=== PATIENT | female | born 1970 | race Caucasian/White ===

== ENCOUNTER 2021-10-30 14:12 | Inpatient (IN) ==
[2021-10-30 15:28] LABS: Basophils % 0.1 %; Eosinophils % 0.1 %
[2021-10-30 15:30] LABS: Hematocrit 16.6 % (35.3-44.9); Immature Granulocytes % 3.1 % (0-4); Immature Platelets 9.2 % (1.1-6.1); Lymphocytes # 1.6 K/mcL (0.6-4.6); Lymphocytes % 17.2 %; Mean Corpuscular HGB Conc 33.1 g/dL (31.6-35.5); Mean Corpuscular Hemoglobin 25.6 pg (28.0-33.3); Mean Corpuscular Volume 77.2 fL (83.0-100.0); Mean Platelet Volume 12.1 fL (9.4-12.4); Monocytes # 0.4 K/mcL (0.0-1.3); Monocytes % 4.4 %; Nucleated Red Blood Cells 2.6 /100 WBC (0); Red Blood Count 2.15 M/mcL (3.82-4.97); Segmented Neutrophils % 75.1 %
[2021-10-30 15:44] LABS: Alanine Aminotransferase 3 Units/L (7-52); Albumin 3.8 g/dL (3.5-5.7); Albumin/Globulin Ratio 1.5 (1.1-2.2); Alkaline Phosphatase 209 Units/L (34-104); Aspartate Amino Transferase 4 Units/L (13-39); BUN/Creatinine Ratio 54 (6-26); Bilirubin,Direct 0.6 mg/dL (0.0-0.2); Bilirubin,Indirect 1.5 mg/dL (0.0-1.0); Bilirubin,Total 2.1 mg/dL (0.3-1.0); Blood Urea Nitrogen 32 mg/dL (6-20); Calcium 9.4 mg/dL (8.6-10.3); Carbon Dioxide 19 mEq/L (23-29); Chloride 96 mEq/L (98-107); Globulin 2.5 g/dL (2.4-3.5); Glucose 390 mg/dL (70-105); Osmolality,Calculated 285 (280-300); Potassium 3.1 mEq/L (3.5-5.1); Sodium 126 mEq/L (136-145); Total Protein 6.3 g/dL (6.4-8.9); Troponin I < 0.03 ng/mL (< 0.04); eGFR For African Americans > 60 (> 60); eGFR For Non-African Americans > 60 (> 60)
[2021-10-30 15:52] LABS: Neutrophils # 6.8 K/mcL (1.6-8.9); Platelet Count 89 K/mcL (140-400)
[2021-10-30 15:56] LABS: Hemoglobin 5.5 g/dL (11.5-15.4)
[2021-10-30 15:57] LABS: Anisocytosis 1+ (Not Present); Ovalocytes 1+ (Not Present); Platelet Estimate Decreased (Normal)
[2021-10-30] MEDS ORDERED: 0.9 % Sodium Chloride 500 ML IVC ONE (15:59)
[2021-10-30 16:01] LABS: Influenza A PCR Negative (Negative); Influenza B PCR Negative (Negative); Resp. Syncytial Virus PCR Negative (Negative)
[2021-10-30 16:04] LABS: SARS-CoV-2 by PCR (In House) Negative (Negative)
[2021-10-30] MEDS ORDERED: Ringers Solution, Lactated 500 ML IVC ONE (16:18)
[2021-10-30] MEDS ORDERED: Isovue-370 500 ML BOTTLE IVP ONE ×2 (16:37→16:46)
[2021-10-30] MEDS ORDERED: Naloxone 0.4 MG/ML INJ IVP PRN (16:53)
[2021-10-30] MEDS ORDERED: Ondansetron 4 MG/2 ML VIAL IVP PRN (16:53)
[2021-10-30] MEDS: Pantoprazole 40 MG VIAL IVP SCH ×2 (16:59→23:01)
[2021-10-30 17:00] LABS: Magnesium 2.2 mg/dL (1.6-2.6)
[2021-10-30] MEDS ORDERED: *HR* Dextrose 50 % in Water (Syg) 50 ML SYRINGE IVP PRN (17:02)
[2021-10-30] MEDS ORDERED: Dextrose Gel 15 GM/37.5 ML TUBE PO PRN ×2 (17:02)
[2021-10-30] MEDS ORDERED: D5% in Water 1,000 ML IVC PRN (17:02)
[2021-10-30 17:51] LABS: Lactate Dehydrogenase 84 Units/L (140-271)
[2021-10-30 17:55] LABS: Basophils % 0.1 %
[2021-10-30 17:57] LABS: Hematocrit 15.2 % (35.3-44.9); Immature Granulocytes % 3.3 % (0-4); Immature Platelets 7.5 % (1.1-6.1); Lymphocytes # 1.5 K/mcL (0.6-4.6); Lymphocytes % 19.3 %; Mean Corpuscular HGB Conc 32.2 g/dL (31.6-35.5); Mean Corpuscular Hemoglobin 25.9 pg (28.0-33.3); Mean Corpuscular Volume 80.4 fL (83.0-100.0); Mean Platelet Volume 11.8 fL (9.4-12.4); Monocytes # 0.4 K/mcL (0.0-1.3); Monocytes % 4.7 %; Neutrophils # 5.7 K/mcL (1.6-8.9); Nucleated Red Blood Cells 2.8 /100 WBC (0); Red Blood Count 1.89 M/mcL (3.82-4.97); Segmented Neutrophils % 72.6 %; White Blood Count 7.8 K/mcL (4.3-11.1)
[2021-10-30 18:00] LABS: Platelet Count 80 K/mcL (140-400)
[2021-10-30 18:02] LABS: Hemoglobin 4.9 g/dL (11.5-15.4)
[2021-10-30 18:15] LABS: Anisocytosis 3+ (Not Present); Hypochromasia Present (Not Present); Platelet Estimate Decreased (Normal); Polychromasia 1+ (Not Present); Target Cells 1+ (Not Present)
[2021-10-30] MEDS ORDERED: 0.9 % Sodium Chloride 500 ML ONE (19:13)
[2021-10-30] MEDS: Pantoprazole 40 MG in 0.9 % Sodium Chloride Mini Bag 100 ML IVC SCH (23:01)
[2021-10-30] MEDS: Insulin LISPRO 300 UNITS/3 ML VIAL SUBQ SCH ×2 (23:11)
[2021-10-31] MEDS: Pantoprazole 40 MG in 0.9 % Sodium Chloride Mini Bag 100 ML IVC SCH ×5 (01:10→21:45)
[2021-10-31] MEDS ORDERED: 0.9 % Sodium Chloride 1,000 ML IVC SCH (01:45)
[2021-10-31 02:14] LABS: Basophils % 0.1 %; Lymphocytes % 20.5 %; Mean Corpuscular Volume 78.5 fL (83.0-100.0); Nucleated Red Blood Cells 1.6 /100 WBC (0)
[2021-10-31 02:16] LABS: Eosinophils % 0.2 %; Immature Granulocytes % 4.3 % (0-4); Immature Platelets 8.2 % (1.1-6.1); Lymphocytes # 1.9 K/mcL (0.6-4.6); Mean Corpuscular HGB Conc 35.3 g/dL (31.6-35.5); Mean Corpuscular Hemoglobin 27.7 pg (28.0-33.3); Mean Platelet Volume 10.8 fL (9.4-12.4); Monocytes # 0.4 K/mcL (0.0-1.3); Monocytes % 4.9 %; Neutrophils # 6.3 K/mcL (1.6-8.9); Red Blood Count 2.56 M/mcL (3.82-4.97); Red Cell Distribution Width 15.3 % (11.5-14.5)
[2021-10-31 02:17] LABS: Platelet Count 75 K/mcL (140-400)
[2021-10-31] MEDS: Insulin LISPRO 300 UNITS/3 ML VIAL SUBQ SCH ×3 (05:52→18:54)
[2021-10-31 06:27] LABS: Bilirubin,Urine Small (Negative); Blood,Urine Trace (Negative); Clarity,Urine Turbid (Clear); Color,Urine Orange (Yellow); Glucose,Urine (UA) 200 mg/dL (Normal); Ketones,Urine Negative (Negative); Leukocyte Esterase,Urine Small (Negative); Mucus,Urine Few per lpf (None-Few); Nitrite,Urine Negative (Negative); Protein,Urine 30 mg/dL (Neg-Trace); RBC,Urine 0-3 per hpf (0-3); Specific Gravity,Urine 1.025 (1.010-1.025); Squamous Epithelial Cell,Urine Few per hpf (None-Few); WBC,Urine 15-30 per hpf (0-3)
[2021-10-31 06:35] LABS: Mean Platelet Volume 11.1 fL (9.4-12.4)
[2021-10-31 06:37] LABS: Basophils % 0.2 %; Eosinophils % 0.2 %; Hemoglobin 6.6 g/dL (11.5-15.4); Immature Granulocytes % 4.1 % (0-4); Immature Platelets 6.1 % (1.1-6.1); Lymphocytes % 24.8 %; Mean Corpuscular HGB Conc 36.7 g/dL (31.6-35.5); Mean Corpuscular Hemoglobin 28.6 pg (28.0-33.3); Mean Corpuscular Volume 77.9 fL (83.0-100.0); Monocytes # 0.4 K/mcL (0.0-1.3); Monocytes % 4.7 %; Neutrophils # 5.4 K/mcL (1.6-8.9); Nucleated Red Blood Cells 1.5 /100 WBC (0); Red Blood Count 2.31 M/mcL (3.82-4.97); Red Cell Distribution Width 14.6 % (11.5-14.5); White Blood Count 8.1 K/mcL (4.3-11.1)
[2021-10-31 06:43] LABS: Platelet Count 73 K/mcL (140-400)
[2021-10-31 07:04] LABS: Alanine Aminotransferase 3 Units/L (7-52); Albumin 3.1 g/dL (3.5-5.7); Albumin/Globulin Ratio 1.6 (1.1-2.2); Alkaline Phosphatase 177 Units/L (34-104); Aspartate Amino Transferase 4 Units/L (13-39); BUN/Creatinine Ratio 59 (6-26); Bilirubin,Direct 0.6 mg/dL (0.0-0.2); Bilirubin,Indirect 1.8 mg/dL (0.0-1.0); Bilirubin,Total 2.4 mg/dL (0.3-1.0); Blood Urea Nitrogen 29 mg/dL (6-20); Calcium 8.5 mg/dL (8.6-10.3); Carbon Dioxide 21 mEq/L (23-29); Chloride 102 mEq/L (98-107); Glucose 179 mg/dL (70-105); Magnesium 1.9 mg/dL (1.6-2.6); Osmolality,Calculated 282 (280-300); Potassium 3.2 mEq/L (3.5-5.1); Sodium 131 mEq/L (136-145); Total Protein 5.1 g/dL (6.4-8.9); eGFR For African Americans > 60 (> 60); eGFR For Non-African Americans > 60 (> 60)
[2021-10-31] MEDS ORDERED: 0.9 % Sodium Chloride 250 ML IVC SCH (07:45)
[2021-10-31 13:04] LABS: INR 1.2; Prothrombin Time 13.8 Seconds (9.4-12.1)
[2021-10-31] MEDS ORDERED: Lidocaine -MPF 2% 5 ML VIAL ONE (14:03)
[2021-10-31 15:23] LABS: Hematocrit 23.7 % (35.3-44.9)
[2021-10-31 15:27] LABS: Hemoglobin 8.5 g/dL (11.5-15.4)
[2021-11-01] MEDS: Pantoprazole 40 MG in 0.9 % Sodium Chloride Mini Bag 100 ML IVC SCH ×5 (02:20→22:14)
[2021-11-01] MEDS: Insulin LISPRO 300 UNITS/3 ML VIAL SUBQ SCH ×4 (02:20→19:47)
[2021-11-01 04:59] LABS: Basophils % 0.3 %; Eosinophils % 0.3 %; Hematocrit 23.9 % (35.3-44.9); Hemoglobin 8.4 g/dL (11.5-15.4); Lymphocytes # 0.9 K/mcL (0.6-4.6); Mean Corpuscular HGB Conc 35.1 g/dL (31.6-35.5); Mean Corpuscular Hemoglobin 28.5 pg (28.0-33.3); Mean Platelet Volume 10.6 fL (9.4-12.4); Monocytes # 0.4 K/mcL (0.0-1.3); Monocytes % 5.9 %; Nucleated Red Blood Cells 0.6 /100 WBC (0); Red Blood Count 2.95 M/mcL (3.82-4.97); Red Cell Distribution Width 14.9 % (11.5-14.5); Segmented Neutrophils % 77.5 %; White Blood Count 6.4 K/mcL (4.3-11.1)
[2021-11-01 05:00] LABS: Platelet Count 54 K/mcL (140-400)
[2021-11-01 05:17] LABS: Albumin 2.7 g/dL (3.5-5.7); Albumin/Globulin Ratio 1.4 (1.1-2.2); BUN/Creatinine Ratio 48 (6-26); Bilirubin,Direct 0.7 mg/dL (0.0-0.2); Bilirubin,Indirect 1.6 mg/dL (0.0-1.0); Bilirubin,Total 2.3 mg/dL (0.3-1.0); Blood Urea Nitrogen 20 mg/dL (6-20); Calcium 7.7 mg/dL (8.6-10.3); Carbon Dioxide 18 mEq/L (23-29); Chloride 107 mEq/L (98-107); Glucose 216 mg/dL (70-105); Magnesium 1.8 mg/dL (1.6-2.6); Osmolality,Calculated 285 (280-300); Potassium 3.6 mEq/L (3.5-5.1); Sodium 133 mEq/L (136-145); Total Protein 4.7 g/dL (6.4-8.9); eGFR For African Americans > 60 (> 60); eGFR For Non-African Americans > 60 (> 60)
[2021-11-01] MEDS ORDERED: Cyanocobalamin (B-12) 1,000 MCG/ML VIAL SQ ONE (07:14)
[2021-11-01] MEDS: Cholecalciferol (D-3) 1,000 UNIT (25MCG) TABLET PO SCH (08:02)
[2021-11-01] MEDS: dexAMETHasone 4 MG TABLET PO SCH (20:30)
[2021-11-01] MEDS ORDERED: Mirtazapine 15 MG TABLET PO SCH (21:00)
[2021-11-02] MEDS: Insulin LISPRO 300 UNITS/3 ML VIAL SUBQ SCH ×4 (00:02→18:17)
[2021-11-02] MEDS: Pantoprazole 40 MG in 0.9 % Sodium Chloride Mini Bag 100 ML IVC SCH ×4 (03:18→20:25)
[2021-11-02 06:32] LABS: Hemoglobin 7.8 g/dL (11.5-15.4); Nucleated Red Blood Cells 0.4 /100 WBC (0)
[2021-11-02 06:34] LABS: Basophils % 0.2 %; Hematocrit 21.9 % (35.3-44.9); Immature Granulocytes % 0.8 % (0-4); Immature Platelets 3.8 % (1.1-6.1); Lymphocytes # 0.5 K/mcL (0.6-4.6); Lymphocytes % 10.5 %; Mean Corpuscular HGB Conc 35.6 g/dL (31.6-35.5); Mean Corpuscular Volume 81.4 fL (83.0-100.0); Mean Platelet Volume 11.3 fL (9.4-12.4); Monocytes # 0.1 K/mcL (0.0-1.3); Monocytes % 2.4 %; Red Blood Count 2.69 M/mcL (3.82-4.97); Red Cell Distribution Width 15.4 % (11.5-14.5); Segmented Neutrophils % 86.1 %; White Blood Count 4.9 K/mcL (4.3-11.1)
[2021-11-02 06:36] LABS: Neutrophils # 4.2 K/mcL (1.6-8.9); Platelet Count 49 K/mcL (140-400)
[2021-11-02 06:39] LABS: Albumin 2.7 g/dL (3.5-5.7); Albumin/Globulin Ratio 1.4 (1.1-2.2); BUN/Creatinine Ratio 38 (6-26); Bilirubin,Direct 0.8 mg/dL (0.0-0.2); Bilirubin,Indirect 1.2 mg/dL (0.0-1.0); Blood Urea Nitrogen 15 mg/dL (6-20); Calcium 7.8 mg/dL (8.6-10.3); Carbon Dioxide 18 mEq/L (23-29); Chloride 108 mEq/L (98-107); Globulin 1.9 g/dL (2.4-3.5); Glucose 207 mg/dL (70-105); Magnesium 1.9 mg/dL (1.6-2.6); Osmolality,Calculated 285 (280-300); Phosphorous 2.2 mg/dL (2.7-4.5); Potassium 3.5 mEq/L (3.5-5.1); Sodium 134 mEq/L (136-145); Total Protein 4.6 g/dL (6.4-8.9); eGFR For African Americans > 60 (> 60); eGFR For Non-African Americans > 60 (> 60)
[2021-11-02] MEDS: dexAMETHasone 4 MG TABLET PO SCH (08:30)
[2021-11-02] MEDS: Cholecalciferol (D-3) 1,000 UNIT (25MCG) TABLET PO SCH (08:30)
[2021-11-02] MEDS ORDERED: 0.9 % Sodium Chloride 250 ML IVC SCH (14:15)
[2021-11-02] MEDS ORDERED: 0.9 % Sodium Chloride 250 ML ONE (15:53)
[2021-11-03] MEDS: Insulin LISPRO 300 UNITS/3 ML VIAL SUBQ SCH ×4 (01:17→20:32)
[2021-11-03] MEDS: Pantoprazole 40 MG in 0.9 % Sodium Chloride Mini Bag 100 ML IVC SCH ×5 (01:24→21:45)
[2021-11-03 11:17] LABS: Immature Granulocytes % 0.6 % (0-4)
[2021-11-03 11:19] LABS: Immature Platelets 4.8 % (1.1-6.1); Lymphocytes # 1.3 K/mcL (0.6-4.6); Lymphocytes % 27.1 %; Mean Corpuscular HGB Conc 34.8 g/dL (31.6-35.5); Mean Corpuscular Hemoglobin 28.2 pg (28.0-33.3); Mean Platelet Volume 10.4 fL (9.4-12.4); Monocytes # 0.2 K/mcL (0.0-1.3); Neutrophils # 3.2 K/mcL (1.6-8.9); Nucleated Red Blood Cells 0.4 /100 WBC (0); Red Blood Count 2.84 M/mcL (3.82-4.97); Red Cell Distribution Width 15.5 % (11.5-14.5); Segmented Neutrophils % 67.3 %; White Blood Count 4.8 K/mcL (4.3-11.1)
[2021-11-03 11:20] LABS: Platelet Count 65 K/mcL (140-400)
[2021-11-03 11:22] LABS: Albumin 2.9 g/dL (3.5-5.7); Albumin/Globulin Ratio 1.5 (1.1-2.2); BUN/Creatinine Ratio 44 (6-26); Bilirubin,Direct 0.4 mg/dL (0.0-0.2); Bilirubin,Indirect 0.9 mg/dL (0.0-1.0); Bilirubin,Total 1.3 mg/dL (0.3-1.0); Blood Urea Nitrogen 17 mg/dL (6-20); Carbon Dioxide 18 mEq/L (23-29); Chloride 108 mEq/L (98-107); Globulin 1.9 g/dL (2.4-3.5); Glucose 169 mg/dL (70-105); Magnesium 1.9 mg/dL (1.6-2.6); Osmolality,Calculated 287 (280-300); Potassium 3.3 mEq/L (3.5-5.1); Sodium 136 mEq/L (136-145); Total Protein 4.8 g/dL (6.4-8.9); eGFR For African Americans > 60 (> 60); eGFR For Non-African Americans > 60 (> 60)
[2021-11-03] MEDS ORDERED: Lidocaine -MPF 1% 5 ML AMPUL INFILT ONE (11:28)
[2021-11-04] MEDS: Insulin LISPRO 300 UNITS/3 ML VIAL SUBQ SCH ×4 (01:38→18:24)
[2021-11-04] MEDS: Pantoprazole 40 MG in 0.9 % Sodium Chloride Mini Bag 100 ML IVC SCH ×5 (02:27→20:43)
[2021-11-04 04:39] LABS: Hemoglobin 7.8 g/dL (11.5-15.4); Immature Granulocytes % 0.4 % (0-4); Monocytes % 3.8 %; Platelet Count 62 K/mcL (140-400)
[2021-11-04 04:41] LABS: Hematocrit 22.7 % (35.3-44.9); Immature Platelets 4.4 % (1.1-6.1); Lymphocytes # 0.8 K/mcL (0.6-4.6); Lymphocytes % 18.5 %; Mean Corpuscular HGB Conc 34.4 g/dL (31.6-35.5); Mean Corpuscular Hemoglobin 28.2 pg (28.0-33.3); Mean Corpuscular Volume 81.9 fL (83.0-100.0); Mean Platelet Volume 10.4 fL (9.4-12.4); Monocytes # 0.2 K/mcL (0.0-1.3); Neutrophils # 3.5 K/mcL (1.6-8.9); Nucleated Red Blood Cells 0.4 /100 WBC (0); Red Blood Count 2.77 M/mcL (3.82-4.97); Red Cell Distribution Width 15.6 % (11.5-14.5); Segmented Neutrophils % 77.3 %; White Blood Count 4.5 K/mcL (4.3-11.1)
[2021-11-04 04:55] LABS: Alanine Aminotransferase 5 Units/L (7-52); Albumin 2.8 g/dL (3.5-5.7); Albumin/Globulin Ratio 1.5 (1.1-2.2); Alkaline Phosphatase 164 Units/L (34-104); Aspartate Amino Transferase 5 Units/L (13-39); BUN/Creatinine Ratio 51 (6-26); Bilirubin,Direct 0.3 mg/dL (0.0-0.2); Bilirubin,Indirect 0.8 mg/dL (0.0-1.0); Bilirubin,Total 1.1 mg/dL (0.3-1.0); Blood Urea Nitrogen 19 mg/dL (6-20); Carbon Dioxide 16 mEq/L (23-29); Chloride 108 mEq/L (98-107); Globulin 1.9 g/dL (2.4-3.5); Glucose 178 mg/dL (70-105); Magnesium 1.9 mg/dL (1.6-2.6); Osmolality,Calculated 287 (280-300); Potassium 3.7 mEq/L (3.5-5.1); Sodium 135 mEq/L (136-145); Total Protein 4.7 g/dL (6.4-8.9); eGFR For African Americans > 60 (> 60); eGFR For Non-African Americans > 60 (> 60)
[2021-11-04] MEDS: Chlorhexidine Rinse 15 ML MOUTHWASH MM SCH (20:44)
[2021-11-05] MEDS: Insulin LISPRO 300 UNITS/3 ML VIAL SUBQ SCH ×4 (00:52→18:57)
[2021-11-05] MEDS: Pantoprazole 40 MG in 0.9 % Sodium Chloride Mini Bag 100 ML IVC SCH ×5 (02:00→20:25)
[2021-11-05 02:17] LABS: Hemoglobin 7.4 g/dL (11.5-15.4); Immature Granulocytes % 0.7 % (0-4); Red Cell Distribution Width 15.7 % (11.5-14.5)
[2021-11-05 02:19] LABS: Hematocrit 21.5 % (35.3-44.9); Lymphocytes # 0.7 K/mcL (0.6-4.6); Lymphocytes % 23.8 %; Mean Corpuscular HGB Conc 34.4 g/dL (31.6-35.5); Mean Corpuscular Volume 81.4 fL (83.0-100.0); Mean Platelet Volume 9.7 fL (9.4-12.4); Monocytes # 0.1 K/mcL (0.0-1.3); Monocytes % 2.3 %; Neutrophils # 2.2 K/mcL (1.6-8.9); Red Blood Count 2.64 M/mcL (3.82-4.97); Segmented Neutrophils % 73.2 %
[2021-11-05 02:21] LABS: Platelet Count 54 K/mcL (140-400)
[2021-11-05 02:37] LABS: BUN/Creatinine Ratio 56 (6-26); Blood Urea Nitrogen 18 mg/dL (6-20); Calcium 7.6 mg/dL (8.6-10.3); Carbon Dioxide 17 mEq/L (23-29); Chloride 108 mEq/L (98-107); Glucose 170 mg/dL (70-105); Magnesium 1.9 mg/dL (1.6-2.6); Osmolality,Calculated 288 (280-300); Phosphorous 2.8 mg/dL (2.7-4.5); Potassium 3.3 mEq/L (3.5-5.1); Sodium 136 mEq/L (136-145); eGFR For African Americans > 60 (> 60); eGFR For Non-African Americans > 60 (> 60)
[2021-11-05] MEDS: Chlorhexidine Rinse 15 ML MOUTHWASH MM SCH ×2 (07:26→19:42)
[2021-11-06] MEDS: Insulin LISPRO 300 UNITS/3 ML VIAL SUBQ SCH ×4 (00:52→18:22)
[2021-11-06] MEDS: Pantoprazole 40 MG in 0.9 % Sodium Chloride Mini Bag 100 ML IVC SCH (01:52)
[2021-11-06 06:22] LABS: Mean Corpuscular Volume 82.5 fL (83.0-100.0); Red Cell Distribution Width 15.7 % (11.5-14.5)
[2021-11-06 06:25] LABS: Basophils % 0.2 %; Eosinophils % 0.2 %; Hematocrit 23.6 % (35.3-44.9); Immature Granulocytes % 0.4 % (0-4); Immature Platelets 4.8 % (1.1-6.1); Lymphocytes # 1.1 K/mcL (0.6-4.6); Lymphocytes % 23.8 %; Mean Corpuscular HGB Conc 33.9 g/dL (31.6-35.5); Mean Platelet Volume 11.3 fL (9.4-12.4); Monocytes # 0.1 K/mcL (0.0-1.3); Monocytes % 3.1 %; Red Blood Count 2.86 M/mcL (3.82-4.97); Segmented Neutrophils % 72.3 %; White Blood Count 4.5 K/mcL (4.3-11.1)
[2021-11-06 06:33] LABS: Neutrophils # 3.3 K/mcL (1.6-8.9); Platelet Count 59 K/mcL (140-400)
[2021-11-06 07:47] LABS: Alanine Aminotransferase 6 Units/L (7-52); Albumin/Globulin Ratio 1.8 (1.1-2.2); Alkaline Phosphatase 185 Units/L (34-104); Aspartate Amino Transferase 7 Units/L (13-39); BUN/Creatinine Ratio 40 (6-26); Bilirubin,Direct 0.4 mg/dL (0.0-0.2); Bilirubin,Total 1.4 mg/dL (0.3-1.0); Blood Urea Nitrogen 17 mg/dL (6-20); Calcium 8.1 mg/dL (8.6-10.3); Carbon Dioxide 14 mEq/L (23-29); Chloride 105 mEq/L (98-107); Globulin 1.7 g/dL (2.4-3.5); Glucose 229 mg/dL (70-105); Magnesium 2.4 mg/dL (1.6-2.6); Osmolality,Calculated 281 (280-300); Phosphorous 2.5 mg/dL (2.7-4.5); Sodium 131 mEq/L (136-145); Total Protein 4.7 g/dL (6.4-8.9); eGFR For African Americans > 60 (> 60); eGFR For Non-African Americans > 60 (> 60)
[2021-11-06] MEDS: Chlorhexidine Rinse 15 ML MOUTHWASH MM SCH ×3 (09:03→21:29)
[2021-11-06] MEDS: Pantoprazole 40 MG VIAL IVP SCH (09:04)
[2021-11-06] MEDS: Stomatitis Mixture 5 ML UDC PO SCH ×5 (09:04→21:32)
[2021-11-07] MEDS: Insulin LISPRO 300 UNITS/3 ML VIAL SUBQ SCH ×4 (01:12→17:11)
[2021-11-07 03:23] LABS: Eosinophils % 0.2 %; Hemoglobin 7.3 g/dL (11.5-15.4)
[2021-11-07 03:24] LABS: Hematocrit 21.5 % (35.3-44.9); Immature Granulocytes % 0.2 % (0-4); Lymphocytes # 1.6 K/mcL (0.6-4.6); Lymphocytes % 33.8 %; Mean Corpuscular Hemoglobin 28.1 pg (28.0-33.3); Mean Corpuscular Volume 82.7 fL (83.0-100.0); Mean Platelet Volume 10.5 fL (9.4-12.4); Monocytes # 0.1 K/mcL (0.0-1.3); Monocytes % 2.1 %; Red Cell Distribution Width 15.9 % (11.5-14.5); Segmented Neutrophils % 63.7 %; White Blood Count 4.7 K/mcL (4.3-11.1)
[2021-11-07 03:28] LABS: Platelet Count 52 K/mcL (140-400)
[2021-11-07 03:30] LABS: Alanine Aminotransferase 7 Units/L (7-52); Albumin 2.9 g/dL (3.5-5.7); Albumin/Globulin Ratio 1.5 (1.1-2.2); Alkaline Phosphatase 172 Units/L (34-104); Aspartate Amino Transferase 6 Units/L (13-39); BUN/Creatinine Ratio 43 (6-26); Bilirubin,Direct 0.5 mg/dL (0.0-0.2); Bilirubin,Indirect 1.1 mg/dL (0.0-1.0); Bilirubin,Total 1.6 mg/dL (0.3-1.0); Blood Urea Nitrogen 22 mg/dL (6-20); Calcium 7.8 mg/dL (8.6-10.3); Carbon Dioxide 17 mEq/L (23-29); Chloride 105 mEq/L (98-107); Globulin 1.9 g/dL (2.4-3.5); Glucose 199 mg/dL (70-105); Magnesium 2.2 mg/dL (1.6-2.6); Osmolality,Calculated 285 (280-300); Potassium 3.6 mEq/L (3.5-5.1); Sodium 133 mEq/L (136-145); Total Protein 4.8 g/dL (6.4-8.9); eGFR For African Americans > 60 (> 60); eGFR For Non-African Americans > 60 (> 60)
[2021-11-07] MEDS: Chlorhexidine Rinse 15 ML MOUTHWASH MM SCH ×2 (09:28→23:00)
[2021-11-07] MEDS: Pantoprazole 40 MG VIAL IVP SCH (09:29)
[2021-11-07] MEDS: Stomatitis Mixture 5 ML UDC PO SCH ×4 (10:05→23:00)
[2021-11-07] MEDS ORDERED: Gadolinium Contrast Agent (WT Based) IV PRN (14:11)
[2021-11-07 14:17] LABS: Prothrombin Time 11.5 Seconds (9.4-12.1)
[2021-11-07] MEDS: Magic Mouthwash 10 ML UD Cup PO SCH (17:04)
[2021-11-07] MEDS: 0.9 % Sodium Chloride 1,000 ML IVC SCH (17:11)
[2021-11-07] MEDS: Desitin (Zinc Oxide) 56 GM TUBE TP SCH (23:00)
[2021-11-08] MEDS: 0.9 % Sodium Chloride 1,000 ML IVC SCH (05:50)
[2021-11-08] MEDS: Insulin LISPRO 300 UNITS/3 ML VIAL SUBQ SCH ×4 (05:51→16:44)
[2021-11-08 06:24] LABS: Eosinophils % 0.2 %; Hemoglobin 7.1 g/dL (11.5-15.4); Immature Granulocytes % 0.2 % (0-4)
[2021-11-08 06:26] LABS: Hematocrit 20.8 % (35.3-44.9); Immature Platelets 5.3 % (1.1-6.1); Lymphocytes # 1.1 K/mcL (0.6-4.6); Lymphocytes % 24.7 %; Mean Corpuscular HGB Conc 34.1 g/dL (31.6-35.5); Mean Corpuscular Volume 81.9 fL (83.0-100.0); Monocytes # 0.1 K/mcL (0.0-1.3); Monocytes % 2.2 %; Neutrophils # 3.3 K/mcL (1.6-8.9); Red Blood Count 2.54 M/mcL (3.82-4.97); Red Cell Distribution Width 15.4 % (11.5-14.5); Segmented Neutrophils % 72.7 %; White Blood Count 4.5 K/mcL (4.3-11.1)
[2021-11-08 06:27] LABS: Platelet Count 38 K/mcL (140-400)
[2021-11-08 06:50] LABS: Alanine Aminotransferase 6 Units/L (7-52); Albumin 3.1 g/dL (3.5-5.7); Albumin/Globulin Ratio 1.7 (1.1-2.2); Alkaline Phosphatase 190 Units/L (34-104); Aspartate Amino Transferase 5 Units/L (13-39); BUN/Creatinine Ratio 50 (6-26); Bilirubin,Total 1.9 mg/dL (0.3-1.0); Blood Urea Nitrogen 19 mg/dL (6-20); Calcium 8.4 mg/dL (8.6-10.3); Carbon Dioxide 16 mEq/L (23-29); Chloride 105 mEq/L (98-107); Globulin 1.8 g/dL (2.4-3.5); Glucose 182 mg/dL (70-105); Magnesium 2.2 mg/dL (1.6-2.6); Osmolality,Calculated 279 (280-300); Potassium 3.4 mEq/L (3.5-5.1); Sodium 131 mEq/L (136-145); Total Protein 4.9 g/dL (6.4-8.9); eGFR For African Americans > 60 (> 60); eGFR For Non-African Americans > 60 (> 60)
[2021-11-08] MEDS: Stomatitis Mixture 5 ML UDC PO SCH ×4 (10:20→23:04)
[2021-11-08] MEDS: Magic Mouthwash 10 ML UD Cup PO SCH ×3 (10:20→18:08)
[2021-11-08] MEDS: Chlorhexidine Rinse 15 ML MOUTHWASH MM SCH ×2 (10:21→22:34)
[2021-11-08] MEDS: Pantoprazole 40 MG VIAL IVP SCH (10:21)
[2021-11-08] MEDS ORDERED: Saliva Stimulant 44.3ml BOTTLE PO PRN (13:30)
[2021-11-08] MEDS: Desitin (Zinc Oxide) 56 GM TUBE TP SCH (15:25)
[2021-11-08 16:13] VITALS: TEMP 98.2
[2021-11-08 22:22] VITALS: O2SAT 100
[2021-11-08] MEDS: Morphine Sulfate Oral CONC 10 MG/0.5 ML ORAL.SYG SL PRN (22:34)
[2021-11-08] MEDS: Artificial Tears SOLN 15 ML BOTTLE BOTH EYES SCH (22:34)
[2021-11-08] MEDS: Nystatin POWDER 30 GM BOTTLE TP SCH (23:04)
[2021-11-09] MEDS: Desitin (Zinc Oxide) 56 GM TUBE TP SCH ×3 (01:05→22:07)
[2021-11-09] MEDS: Insulin LISPRO 300 UNITS/3 ML VIAL SUBQ SCH ×4 (03:09→16:36)
[2021-11-09] MEDS: Stomatitis Mixture 5 ML UDC PO SCH ×4 (08:00→22:35)
[2021-11-09] MEDS: Magic Mouthwash 10 ML UD Cup PO SCH ×4 (08:00→16:36)
[2021-11-09] MEDS: Chlorhexidine Rinse 15 ML MOUTHWASH MM SCH ×3 (08:00→22:07)
[2021-11-09] MEDS: *HR* LORazepam Oral Conc 2 MG/ML PO PRN (08:03)
[2021-11-09] MEDS: Pantoprazole 40 MG VIAL IVP SCH (08:03)
[2021-11-09] MEDS: Morphine Sulfate Oral CONC 10 MG/0.5 ML ORAL.SYG SL PRN ×3 (08:04→22:09)
[2021-11-09] MEDS: Nystatin POWDER 30 GM BOTTLE TP SCH ×3 (08:05→22:08)
[2021-11-09] MEDS: Cholecalciferol (D-3) 1,000 UNIT (25MCG) TABLET PO SCH (08:05)
[2021-11-09 15:30] VITALS: BP 103/67; PULSE 68
[2021-11-09] MEDS: Artificial Tears SOLN 15 ML BOTTLE BOTH EYES SCH (22:07)
[2021-11-09] MEDS: Morphine Sulfate 2 MG/ML SYRINGE IVP PRN (23:11)
[2021-11-10] MEDS: Insulin LISPRO 300 UNITS/3 ML VIAL SUBQ SCH ×3 (00:12→12:08)
[2021-11-10] MEDS: Morphine Sulfate 2 MG/ML SYRINGE IVP PRN ×3 (01:23→05:08)
[2021-11-10] MEDS: *HR* LORazepam Oral Conc 2 MG/ML PO PRN (05:09)
[2021-11-10] MEDS: Desitin (Zinc Oxide) 56 GM TUBE TP SCH (09:35)
[2021-11-10] MEDS: Chlorhexidine Rinse 15 ML MOUTHWASH MM SCH (09:35)
[2021-11-10] MEDS: Magic Mouthwash 10 ML UD Cup PO SCH ×2 (09:35→12:08)
[2021-11-10] MEDS: Cholecalciferol (D-3) 1,000 UNIT (25MCG) TABLET PO SCH (09:36)
[2021-11-10] MEDS: Pantoprazole 40 MG VIAL IVP SCH (09:36)
[2021-11-10] MEDS: Nystatin POWDER 30 GM BOTTLE TP SCH (09:36)
[2021-11-10] MEDS: Stomatitis Mixture 5 ML UDC PO SCH ×2 (09:36→12:08)
== END 2021-11-10 07:24 | disposition expired | DRG 54 ==
LOC: EMEROOARM 14:12 → 3ANU 14:12 → 2NNU 22:42 → SUATTDRO 22:42 → 2NNU 23:54 → 3ANU 11-06 16:36 → 2ANU 11-08 21:08
PROVIDERS: ADMIT Pharmacist; ATTEND Pharmacist
PROC: ENDOEBX (2021-10-31 12:45)